=== PATIENT | female | born 1980 | race Caucasian/White ===

== ENCOUNTER 2018-09-11 00:03 | Emergency (ER) | payer SELFPAY ==
--- NOTE | 2018-09-11 00:43 | ED Physician Documentation ---
General Adult - HISTORIAN Historian: patient - HPI Stated Complaint: Sudden onset contraction Chief Complaint: Female Urogenital Problems (Vaginal pressure ) Onset: other (pain in her abdomen and vaginal pressure about one hour ago ) Timing: better Severity: mild Further Comments: yes (She reports a sharp pain in mid abdomen a few hours ago then now vaginal pressure. Denies any vaginal leaking,. No contractions she can time) Last known Well Code/Unknown Code: Unknown - ROS CONST: no problems GI/: abdominal pain, other (Unsure of dates per u/s in jul she is due Oct 12 ) - PAST HX Past History: none Surgeries/Procedures: Allergies/Adverse Reactions: Allergies Allergy/AdvReac Type Severity Reaction Status Date / Time prednisone Allergy Verified 09/11/18 00:11 adhesive tape AdvReac Rash Verified 09/11/18 00:11 Antidepressants Allergy Uncoded 09/11/18 00:11 Home Medications: Ambulatory Orders Medication Instructions Recorded NK 09/11/18 - SOCIAL HX Smoking History: cigarettes Alcohol Use: none Drug Use: none - FAMILY HX Family History: No - VITAL SIGNS Vital Signs: Vital Signs Temp Pulse Resp BP Pulse Ox 97.7 F 82 18 125/83 96 09/11/18 00:05 09/11/18 00:05 09/11/18 00:05 09/11/18 00:05 09/11/18 00:05 - REVIEWED ASSESSMENTS Nursing Assessment Reviewed: Yes Vitals Reviewed: Yes Progress - Progress Progress: 0053: Dr Molina at [facility] accepting physician DG 0100: [facility] called he denies need for physician ride along due to no active labor s/sx DG General Adult Physical Exam - PHYSICAL EXAM GENERAL APPEARANCE: no distress EENT: eye inspection normal NECK: normal inspection RESPIRATORY: no resp distress, chest non-tender, breath sounds normal CVS: reg rate & rhythm, heart sounds normal ABDOMEN: soft, no distension, other (Fhr 152- non invasive external vaginal inspection shows no physical signs of impending delivery or vaginal bleeding or leakage. No palpable contractions. No complaint of contractions. Visable baby movement. No complaints of current contractions ) BACK: normal inspection, no CVA tenderness SKIN: warm/dry, normal color EXTREMITIES: non-tender, normal range of motion, no evidence of injury NEURO: oriented X3 Discharge Clincal Impression: Qualifiers: Weeks of gestation: 36 weeks Qualified Code(s): Z3A.36 - 36 weeks gestation of Referrals: Primary Doctor,No [Primary Care Provider] - 2 Days Additional Instructions: 1. Dr Molina at [facility] accepting DG Condition: Stable Decision to Admit: NO Date of Decison to Admit: 09/11/18 Decision Time: 00:56
[2018-09-11 01:55] VITALS: BP 116/77
== END 2018-09-11 01:30 ==
LOC: ED 00:03
DX: R10.9 Unspecified abdominal pain (principal); Z3A.36 36 weeks gestation of pregnancy
CPT/HCPCS: 99284